=== PATIENT | male | born 1950 | race Caucasian/White ===

== ENCOUNTER 2018-09-15 13:38 | Emergency (ER) | payer MEDICARE, OTHER ==
--- NOTE | 2018-09-15 14:03 | ED Physician Documentation ---
History of Present Illness - Stated complaint Stated Complaint: OD ACCIDENTAL - Chief complaint Chief Complaint: General - History obtained from History obtained from: Patient - History of Present Illness Timing: Today (At 11:30 AM today he mistakenly took 6 [id number] instead of the 6 methotrexate tabs he is supposed to take it weekly.) PD PAST MEDICAL HISTORY - Past Medical History Past Medical History: Yes Cardiovascular: Hypertension - Present Medications Home Medications: Ambulatory Orders Medication Instructions Recorded Confirmed Lisinopril/Hydrochlorothiazide 15 mg PO OAW 09/15/18 09/15/18 [Lisinopril-Hctz 20-25 mg Tab] Methotrexate 2.5 mg PO DAILY 09/15/18 09/15/18 No Known Home Medications 09/15/18 09/15/18 - Allergies Allergies/Adverse Reactions: Allergies Allergy/AdvReac Type Severity Reaction Status Date / Time No Known Drug Allergies Allergy Verified 09/15/18 13:48 - Living Situation Living Situation: reports: With spouse/s.o. - Family History Family history: reports: Non contributory PD ED PE NORMAL - Vitals Vital signs reviewed: Yes - General General: Alert and oriented X 3, No acute distress - HEENT HEENT: PERRL, EOMI - Neck Neck: Supple, no meningeal sign, No bony TTP - Neuro Neuro: Alert and oriented X 3, Normal speech - Psych Psych: Normal mood, Normal affect Results - Vitals Vitals: Vital Signs - 24 hr 09/15/18 13:44 Temperature 36.4 C L Heart Rate 78 Respiratory 14 Rate Blood Pressure 145/84 H O2 Saturation 99 Oxygen O2 Source Room air - Labs Labs: Laboratory Tests 09/15/18 14:20 Sodium 135 Potassium 4.2 Chloride 97 L Carbon Dioxide 29 Anion Gap 9.0 BUN 15 Creatinine 0.7 Estimated GFR (MDRD) 112 Glucose 99 Calcium 9.5 PD MEDICAL DECISION MAKING - ED course ED course: 68-year-old gentleman presents normotensive and without significant symptoms albeit may be some very mild lightheadedness he says 2-1/2 hours after taking an accidental overdose of lisinopril and hydrochlorothiazide. Poison control was contacted and recommended discharge and conservative care. I will check his electrolytes and monitor him for a bit. Departure - Departure Disposition: 01 Home, Self Care Clinical Impression: Accidental overdose Qualifiers: Encounter type: initial encounter Qualified Code(s): T50.901A - Poisoning by unspecified drugs, medicaments and biological substances, accidental (unintentional), initial encounter Condition: Good Record reviewed to determine appropriate education?: Yes Instructions: ED Overdose Accidental Comments: Call your doctor to arrange a follow-up appointment, make the next available appointment. In the interim, return anytime if worse or if new symptoms develop.
[2018-09-15 15:18] LABS: CALCIUM 9.5 mg/dL (8.5-10.3); CREATININE 0.7 mg/dL (0.6-1.2)
[2018-09-15 15:30] VITALS: BP 140/87
== END 2018-09-15 15:40 | disposition home or self-care (01) ==
LOC: ED 13:38
DX: T46.4X1A Poisoning by angiotensin-converting-enzyme inhibitors, accidental (unintentional), initial encounter (principal); T50.2X1A Poisoning by carbonic-anhydrase inhibitors, benzothiadiazides and other diuretics, accidental (unintentional), initial encounter; I10 Essential (primary) hypertension
CPT/HCPCS: 36415; 80048; 99283

== ENCOUNTER 2018-12-17 | Day surgery (SDC) | payer MEDICARE, OTHER | END 2018-12-17 09:56 | disposition home or self-care (01) | PROC: 02HV33Z Insertion of Infusion Device into Superior Vena Cava, Percutaneous Approach (ICD-10-PCS; principal; 2018-12-17) | DX: G06.2 Extradural and subdural abscess, unspecified (principal) | CPT/HCPCS: 36569; C1751 ==

== ENCOUNTER 2021-03-06 11:30 | Outpatient (CLI) | payer MEDICARE, OTHER ==
--- NOTE | 2021-03-06 13:38 | XRAY Report ---
PROCEDURE: Wrist 4 View RT INDICATIONS: RIGHT WRIST PAIN TECHNIQUE: 4 views of the wrist were acquired. COMPARISON: None FINDINGS: Bones: No fractures or dislocations. No suspicious bony lesions. 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 Scaphoid view: Scaphoid is intact. Soft tissues: No suspicious soft tissue calcifications. IMPRESSION: No fracture. No acute osseous lesion. If there persistent symptoms or continued clinical concern for pathology, then repeat plain film radiographs (7-10 days) or advanced imaging (CT, MR, bone scan) alexander uld be considered for further evaluation. Reviewed by: Darcy Edwards MD, PhD on 03/06/2021 1:37 PM PDT Approved by: Darcy Edwards MD, PhD on 03/06/2021 1:37 PM PDT Station ID: [id number]
--- NOTE | 2021-03-06 13:40 | XRAY Report ---
PROCEDURE: Hand 3 View RT INDICATIONS: RIGHT HAND PAIN TECHNIQUE: 3 views of the hand(s) acquired. COMPARISON: None available. FINDINGS: Bones: No fractures or dislocations. Extension at the fifth metacarpophalangeal joint and flexion at the fifth interphalangeal joints, which may reflect tendinous injury. Persistent flexion of the thir d proximal interphalangeal joint is also noted. No suspicious bony lesions. Soft tissues: No suspicious soft tissue calcifications. IMPRESSION: 1. No acute osseous abnormality. 2. Irregularity of the third and fifth digits, which may reflect extensor mechanism injury. Reviewed by: Triston Booth MD on 03/06/2021 1:38 PM PDT Approved by: Triston Booth MD on 03/06/2021 1:38 PM PDT Station ID: [id number]
== END 2021-03-06 11:31 ==
LOC: DI.S 11:30
PROVIDERS: ATTEND Physician Assistant Medical
DX: M25.531 Pain in right wrist (principal); M79.641 Pain in right hand

== ENCOUNTER 2023-12-20 08:00 | Outpatient (CLI) | payer MEDICARE, OTHER ==
--- NOTE | 2023-12-20 14:59 | XRAY Report ---
PROCEDURE: Ankle 3+V RT INDICATIONS: RIGHT LEG PAIN TECHNIQUE: 3 views of the ankle were acquired. COMPARISON: None. FINDINGS: Bones: No fractures or dislocations. Ankle mortise is normally aligned. No suspicious bony lesions . Soft tissues: No tibiotalar joint effusion. Achilles tendon appears normal. IMPRESSION: No visualized acute fracture or dislocation. However, occult injury cannot be excluded. Recommend alexander rt interval imaging follow-up in 7-10 days as clinically indicated for additional evaluation. Reviewed by: Zoey Correia MD on 12/20/2023 2:57 PM PDT Approved by: Zoey Correia MD on 12/20/2023 2:57 PM PDT Station ID: [id number]
== END 2023-12-20 23:59 | disposition home or self-care (01) ==
LOC: DI.S 08:00
PROVIDERS: ATTEND Registered Nurse
DX: M79.604 Pain in right leg (principal)

== ENCOUNTER 2023-12-26 10:51 | Outpatient (CLI) | payer MEDICARE, OTHER ==
--- NOTE | 2023-12-26 17:51 | Ultrasound Report ---
PROCEDURE: Duplex Ext Veins Right INDICATIONS: RIGHT LEG EDEMA, RIGHT LEG PAIN TECHNIQUE: Real-time imaging, as well as color and pulse Doppler interrogation, were performed of the lower extr emity deep veins from the inguinal ligament to the popliteal fossa. Attempted visualization of the ca lf veins was performed. COMPARISON: None. FINDINGS: The deep veins are normally compressible, and free of intraluminal thrombus. Color and pu lse Doppler demonstrate normal phasic intraluminal flow. There is normal augmentation response to di stal compression maneuver. At the site of pain, there is a complex heterogeneous fluid collection in the anterior souza measuring 3.3 x 0.7 cm with no significant internal vascularity. IMPRESSION: 1.No deep venous thrombosis of the visualized lower extremity. 2.Small hematoma in the anterior souza at site of pain. Reviewed by: Mary Odom MD on 12/26/2023 5:50 PM PDT Approved by: Mary Odom MD on 12/26/2023 5:50 PM PDT Station ID: [id number]
== END 2023-12-26 10:52 | disposition home or self-care (01) ==
LOC: DI 10:51
PROVIDERS: ATTEND Registered Nurse
DX: R60.0 Localized edema (principal); S80.11XA Contusion of right lower leg, initial encounter